=== PATIENT | male | born 1995 | race African-American/Black ===

== ENCOUNTER 2018-06-07 03:35 | Emergency (ER) | payer OTHER ==
[~2018-06-07] VITALS: Ht 172.7 cm; Wt 63.5 kg
[2018-06-07] MEDS ORDERED: NKM (03:40)
[2018-06-07] MEDS ORDERED: TESSALON PERLE100 MG ORAL (03:54)
[2018-06-07] MEDS ORDERED: ZITHROMAX250 MG ORAL (03:54)
[2018-06-07 03:55] VITALS: BP 109/66
--- NOTE | 2018-06-07 03:55 | Emergency Room Report ---
History of Present Illness General Chief Complaint: Upper Respiratory Illness Source: Patient Present Illness HPI This is a 23-year-old male with no past medical history. No history of asthma. He presents with a dry cough for a month now. No weight loss. No fever chills but no night sweats. No thrush. Online and he said it may be a symptoms of HIV. He was concerned as when he is here. Denies any other complaint. Coughing is nonproductive nature. Allergies: Coded Allergies: No Known Allergies (Unverified , 06/07/18) Patient History Past Medical History: see triage record, old chart reviewed Past Surgical History: none Pertinent Family History: none Social History: Reports: smoking Immunizations: other Nursing Documentation-[facility] Past Medical History: No Stated History Review of Systems Eye: Denies: eye pain, blurred vision ENT: Denies: ear pain, nose congestion, throat swelling Respiratory: Reports: cough; Denies: shortness of breath Cardiovascular: Denies: chest pain, palpitations Gastrointestinal: Denies: abdominal pain, diarrhea, nausea, vomiting Musculoskeletal: Denies: back pain, joint pain Skin: Denies: rash Neurological: Denies: headache, numbness Endocrine: Denies: increased thirst, increased urine Hematologic/Lymphatic: Denies: easy bruising All Other Systems: negative except mentioned in HPI Physical Exam Vital Signs Date Time Temp Pulse Resp B/P (MAP) Pulse Ox O2 Delivery O2 Flow Rate FiO2 06/07/18 03:39 98.2 68 18 109/66 96 Room Air 98.2 vitals normal Sp02 EP Interpretation: reviewed, normal General Appearance: well appearing, no apparent distress, alert Head: normocephalic, atraumatic Eyes: bilateral eye PERRL, bilateral eye EOMI ENT: hearing grossly normal, normal pharynx Neck: full range of motion, supple, no meningismus Respiratory: chest non-tender, lungs clear, normal breath sounds Cardiovascular #1: regular rate, rhythm, no murmur Gastrointestinal: normal bowel sounds, non tender, no mass, no organomegaly, no bruit, non-distended Musculoskeletal: back normal, gait/station normal, normal range of motion Psychiatric: mood/affect normal Skin: warm/dry Medical Decision Making Diagnostic Impression: Primary Impression: Cough in adult ER Course Patient with a chronic cough. Differential include pneumonia, asthma, bronchospasm, allergic reaction to name a few. I see no evidence of neoplastic process. Explained to patient that if he concerned about HIV, he can get testing done at [facility] anonymously. Because his been going on for a month, I will go ahead and put him on antibiotics. Chest X-Ray Diagnostic Results Chest X-Ray Diagnostic Results : Chest X-Ray Ordered: Yes # of Views/Limited/Complete: 1 View Indication: Other - cough EP Interpretation: Yes Interpretation: no consolidation, no effusion, no pneumothorax, no acute cardiopulmonary disease Impression: No acute disease Electronically Signed by: Navi Cedeño MD Last Vital Signs Date Time Temp Pulse Resp B/P (MAP) Pulse Ox O2 Delivery O2 Flow Rate FiO2 06/07/18 03:39 98.2 68 18 109/66 96 Room Air 98.2 Status: unchanged Disposition: HOME, SELF-CARE Condition: Stable Scripts Benzonatate* (TESSALON PERLE*) 100 Mg Capsule 100 MG ORAL THREE TIMES A DAY, #20 PERLE Prov: NAVI CEDEÑO M.D. 06/07/18 Azithromycin* (ZITHROMAX*) 250 Mg Tablet 250 MG ORAL DAILY, #6 TAB 0 Refills Take two tables once daily for 1 day, then one tablet once daily for 4 days. Prov: NAVI CEDEÑO M.D. 06/07/18 Additional Instructions: Follow-up your doctor in 7 days. Follow-up with a STD clinic or health clinic severe concern about HIV testing. Return if worse. NAVI CEDEÑO M.D. Jun 07, 2018 03:55
[2018-06-07 04:04] VITALS: BP 109/66
--- NOTE | 2018-06-07 04:35 | Diagnostic Imaging Report ---
PROCEDURE: FILM CXR 1 VIEW HISTORY: 23-year-old male with cough. COMPARISON: None TECHNIQUE: Frontal view of the chest was obtained. FINDINGS: Limited by technique. Cardiomediastinal silhouette is within normal limits. No evidence of focal consolidation, pleural effusion or pneumothorax. Peribronchial cuffing may be due to bronchitis. Bones are unremarkable for age. IMPRESSION: Peribronchial cuffing may be due to bronchitis. No evidence of focal consolidation.
== END 2018-06-07 04:05 | disposition home or self-care (01) ==
LOC: EMR 03:57
DX: R05 Cough (principal)
CPT/HCPCS: 71045; 99283